=== PATIENT | male | born 1985 | race Caucasian/White ===

== ENCOUNTER 2016-11-24 20:31 | Emergency (ER) | payer OTHER ==
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
--- NOTE | 2016-11-24 22:50 | ED ORDER SUMMARY ---
..... Patient: STEPHEN BENSON OrderSheet [facility] VisitID: [id number] [address] [place] [address] 31y, M Registration Date/Time: 11/24/2016 ORDER SHEET Weight: 83.9 kg (stated) Allergies: Paxil GENERAL ORDERS: Forearm Right Urgent (21:07 11/24/2016 HBivenbing A.R.N.P.) (Ack 21:10 AMcQuoid ER Tech1) (21:30 MCampbell) MEDICATION ORDERS: IV FLUIDS: ORDER SHEET NOTES: [Electronically signed by Desirae Alcazar (22:59 11/24/2016)] [Electronically signed by Lauren Whitt A.R.N.P. (23:28 11/24/2016)] [Electronically locked/signed by Desirae Alcazar (22:59 11/24/2016)]
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
--- NOTE | 2016-11-24 22:50 | ED ORDER SUMMARY ---
..... Patient: STEPHEN BENSON OrderSheet [facility] VisitID: [id number] [address] [place] [address] 31y, M Registration Date/Time: 11/24/2016 ORDER SHEET Weight: 83.9 kg (stated) Allergies: Paxil GENERAL ORDERS: Forearm Right Urgent (21:07 11/24/2016 HBivenbing A.R.N.P.) (Ack 21:10 AMcQuoid ER Tech1) (21:30 MCampbell) MEDICATION ORDERS: IV FLUIDS: ORDER SHEET NOTES: [Electronically signed by Desirae Alcazar (22:59 11/24/2016)] [Electronically signed by Lauren Whitt A.R.N.P. (23:28 11/24/2016)] [Electronically locked/signed by Desirae Alcazar (22:59 11/24/2016)]
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
--- NOTE | 2016-11-24 23:29 | ED MAR SUMMARY ---
..... Medication Administration Record [facility] [address] [place] [id number] Patient: STEPHEN BENSON Visit ID: [id number] 31y, M Weight: 83.9 kg Height/Length: 74 in BMI: 23.8 ALLERGIES: Paxil
--- NOTE | 2016-11-24 23:29 | ED MED RECONCILIATION SUMMARY ---
Patient: STEPHEN BENSON Medication Reconciliation Report [facility] VisitID: [id number] [address] [place] [address] 31y, M Registration Date/Time: 11/24/2016 Weight: 83.9 kg Height/Length: 74 in. BMI: 23.8 ALLERGIES: Paxil The patient's Home Medications are listed below: NONE. The source(s) of the original Home Medication information: patient The following Medications were given to the patient in the Emergency Department: None. The following Medications were prescribed to the patient: Flexeril 10 mg: Take 1 orally every 8 hours as needed for muscle spasm. Dispense twenty (20). No refills. Substitution is permissible. -- Lauren Whitt, Anay.R.N.P. Ultram 50 mg tablets: take 1-2 orally every 6 hours as needed for pain. Dispense twenty (20). No refills. Substitution is permissible. -- Lauren Whitt A.R.N.P.
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
--- NOTE | 2016-11-24 23:29 | ED MAR SUMMARY ---
..... Medication Administration Record [facility] [address] [place], [place] [id number] Patient: STEPHEN BENSON Visit ID: [id number] 31y, M Weight: 83.9 kg Height/Length: 74 in BMI: 23.8 ALLERGIES: Paxil
--- NOTE | 2016-11-24 23:29 | ED MED RECONCILIATION SUMMARY ---
Patient: STEPHEN BENSON Medication Reconciliation Report [facility] VisitID: [id number] [address] [place] [address] 31y, M Registration Date/Time: 11/24/2016 Weight: 83.9 kg Height/Length: 74 in. BMI: 23.8 ALLERGIES: Paxil The patient's Home Medications are listed below: NONE. The source(s) of the original Home Medication information: patient The following Medications were given to the patient in the Emergency Department: None. The following Medications were prescribed to the patient: Flexeril 10 mg: Take 1 orally every 8 hours as needed for muscle spasm. Dispense twenty (20). No refills. Substitution is permissible. -- Lauren Whitt, Anay.R.N.P. Ultram 50 mg tablets: take 1-2 orally every 6 hours as needed for pain. Dispense twenty (20). No refills. Substitution is permissible. -- Lauren Whitt A.R.N.P.
== END 2016-11-24 22:57 | disposition home or self-care (01) ==
LOC: ED SRH 20:31
DX: S50.11XA Contusion of right forearm, initial encounter (principal); V43.52XA Car driver injured in collision with other type car in traffic accident, initial encounter; Y93.89 Activity, other specified; Y92.410 Unspecified street and highway as the place of occurrence of the external cause; Y99.9 Unspecified external cause status